=== PATIENT | male | born 1960 | race Caucasian/White ===

== ENCOUNTER 2020-07-21 12:06 | Emergency (ER) | payer BC, OTHER ==
[~2020-07-21] VITALS: Ht 175.3 cm; Wt 113.4 kg
[2020-07-21 12:08] VITALS: BP 143/85; Ht 175.3 cm; Wt 113.4 kg
== END 2020-07-21 12:25 | disposition home or self-care (01) ==
LOC: ED 12:06
DX: U07.1 COVID-19 (principal)
CPT/HCPCS: U0003

== ENCOUNTER 2020-07-23 09:19 | Emergency (ER) | payer BC, OTHER, SELFPAY ==
[~2020-07-23] VITALS: Ht 175.3 cm; Wt 111.1 kg
[2020-07-23 09:42] VITALS: Ht 175.3 cm; Wt 111.1 kg
[2020-07-23 10:52] LABS: CALCIUM 8.5 mg/dL (8.5-10.1); CARBON DIOXIDE 24.7 mmol/L (21-32); CHLORIDE SERUM 105 mmol/L (98-107); CREATININE SERUM 0.8 mg/dL (0.7-1.3); GFR1 > 60 mL/min; GLUCOSE SERUM 98 mg/dL (74-106); POTASSIUM SERUM 4.5 mmol/L (3.5-5.1); SODIUM SERUM 137 mmol/L (136-145)
[2020-07-23 10:57] LABS: ALBUMIN 3.7 g/dL (3.4-5.0); ALT/SGPT 51 U/L (16-63); AST/SGOT 46 U/L (15-37); BILIRUBIN TOTAL 0.6 mg/dL (0.20-1.00); CHOLESTEROL 175 mg/dL (<200); TOTAL PROTEIN, SERUM 6.6 g/dL (6.4-8.2); TRIGLYCERIDES 111 mg/dL (<150)
[2020-07-23 11:00] LABS: CHOLESTEROL/HDL RATIO 6.3; HDL CHOLESTEROL 28 mg/dL (40-60)
[2020-07-23 11:37] LABS: PLATELET COUNT 129 x10^3mcL (152-348)
[2020-07-23 12:00] VITALS: BP 122/71
[2020-07-23 13:17] LABS: ALKALINE PHOSPHATASE 104 U/L (46-116)
[2020-07-23 15:20] LABS: SEGMENTED NEUTROPHILS 47 % (37-75)
[2020-07-23 15:21] LABS: MONOCYTE 10 % (0-7); rbc morphology (normal/abnorm) NORMAL (NORMAL)
== END 2020-07-23 13:13 | disposition home or self-care (01) ==
LOC: ED 09:19
PROVIDERS: Specialist
DX: Z20.828 Contact with and (suspected) exposure to other viral communicable diseases (principal)
CPT/HCPCS: 83880; J7030; J7050